=== PATIENT | female | born 1945 | race Caucasian/White ===

== ENCOUNTER 2017-11-28 09:28 | Day surgery (SDC) | payer OTHER, SELFPAY ==
[~2017-11-28 09:28] MED LIST: ASPI81CH PO; CLARITIN10 MG PO; GENPREOPSU; IBUP600; LEVSOD100 PO; LORA10; OXYC5; PRED1
== END 2017-11-28 12:35 | disposition home or self-care (01) ==
LOC: ORSCMMR 09:28 → ORD 10:30 → ORSCMMR 10:30
PROVIDERS: Internal Medicine Gastroenterology
PROC: 0DBK8ZX Excision of Ascending Colon, Via Natural or Artificial Opening Endoscopic, Diagnostic (ICD-10-PCS; principal; 2017-11-28 10:30)
PROC: 0DB68ZX Excision of Stomach, Via Natural or Artificial Opening Endoscopic, Diagnostic (ICD-10-PCS; principal; 2017-11-28 10:30)
PROC: 0DB98ZX Excision of Duodenum, Via Natural or Artificial Opening Endoscopic, Diagnostic (ICD-10-PCS; principal; 2017-11-28 10:30)
PROC: 0DBM8ZX Excision of Descending Colon, Via Natural or Artificial Opening Endoscopic, Diagnostic (ICD-10-PCS; principal; 2017-11-28 10:30)
DX: K29.80 Duodenitis without bleeding (principal); R63.4 Abnormal weight loss; K63.89 Other specified diseases of intestine; D12.2 Benign neoplasm of ascending colon; K44.9 Diaphragmatic hernia without obstruction or gangrene; E03.9 Hypothyroidism, unspecified; M06.9 Rheumatoid arthritis, unspecified; Z79.899 Other long term (current) drug therapy
CPT/HCPCS: 88305; 88342; J7030

== ENCOUNTER 2018-02-01 08:45 | Emergency (ER) | payer OTHER, SELFPAY | END 2018-02-01 09:45 | disposition left against medical advice (07) | LOC: ER 08:45 | DX: Z53.21 Procedure and treatment not carried out due to patient leaving prior to being seen by health care provider (principal) ==

== ENCOUNTER 2018-10-24 16:08 | Emergency (ER) | payer OTHER ==
[~2018-10-24] VITALS: Ht 180.3 cm; Wt 61.2 kg
== END 2018-10-24 19:05 | disposition home or self-care (01) ==
LOC: ER 16:08
DX: S43.402A Unspecified sprain of left shoulder joint, initial encounter (principal); W22.8XXA Striking against or struck by other objects, initial encounter; Z88.5 Allergy status to narcotic agent; Z88.8 Allergy status to other drugs, medicaments and biological substances; Z79.899 Other long term (current) drug therapy; Z79.891 Long term (current) use of opiate analgesic; Z79.82 Long term (current) use of aspirin; Z79.52 Long term (current) use of systemic steroids; E03.9 Hypothyroidism, unspecified; Z87.891 Personal history of nicotine dependence
CPT/HCPCS: 73030; 99283-25

== ENCOUNTER 2019-02-05 09:31 | Day surgery (SDC) | payer OTHER | END 2019-02-05 23:00 | disposition home or self-care (01) | LOC: US 09:31 | DX: K74.0 Hepatic fibrosis (principal); E03.9 Hypothyroidism, unspecified; J44.9 Chronic obstructive pulmonary disease, unspecified; Z87.891 Personal history of nicotine dependence; Z79.899 Other long term (current) drug therapy | CPT/HCPCS: 47000; 76942; 88307; 88313 ==

== ENCOUNTER → 2020-12-30 | Outpatient (CLI) | payer OTHER | LOC: LAB SHORT 13:27 → OLS 13:27 | DX: J47.9 Bronchiectasis, uncomplicated (principal) | CPT/HCPCS: 87015; 87116; 87206 ==

== ENCOUNTER → 2021-01-08 | Outpatient (CLI) | payer OTHER | END | disposition home or self-care (01) | LOC: LAB SHORT 12:55 → LAB 12:55 | DX: J47.9 Bronchiectasis, uncomplicated (principal) | CPT/HCPCS: 87015; 87116; 87206 ==

== ENCOUNTER 2023-11-04 11:46 | Inpatient (IN) | payer OTHER ==
[~2023-11-04] VITALS: Ht 177.8 cm; Wt 55.7 kg
[2023-11-04] VITALS (17 sets, daily range): BP systolic 107–131; BP diastolic 51–76
[~2023-11-04 11:46] MED LIST changes: +Acetaminophen 500 MG Tab PO SCH; +CeFAZolin Sodium 2,000 MG in NS 100 ML IV SCH; +Cranberry400 MG PO; +ERGO400 PO; +Echinacea80 MG PO; +HYDHCL25 PO; +Heparin Sodium 5000 Units/ML 1ML MDV IV ONE; +Indocyanine Green 25 MG Vial IV ONE; +Lactated Ringer's 1,000 ML IV SCH; +MAGNESIUM OXID500 MG PO; +MERIBIN5 MG PO; +MetroNIDAZOLE 500MG/NS 100 ml 100 ML IV SCH; +NEURONTIN300 MG PO; -OXYC5; +OXYC5 PO; +TIOT18 INH; +TURMERIC500 M2 PO; +VITAMIN B-122000 MC1 PO; +Vitamin B Comple1 EA PO; +Vitamin C100 M1 PO; +ZINC15 PO
[2023-11-04] MEDS ORDERED: propofoL 20 ML IV ONE (11:58)
[2023-11-04] MEDS ORDERED: FentaNYL Citrate 50 MCG/ML 2 ML Injection ONE ×3 (12:00→17:06)
[2023-11-04] MEDS ORDERED: Rocuronium Bromide 10 MG/ML 5ML Injection IV ONE ×4 (12:01→14:45)
[2023-11-04] MEDS ORDERED: Bupivacaine 0.5% Inj 50 ML Vial ONE (12:27)
[2023-11-04] MEDS ORDERED: Heparin Sodium,Porcine 5,000 UNIT/0.5 ML SDV SC ONE (12:30)
[2023-11-04] MEDS ORDERED: Midazolam HCl 1MG / ML 2ML Vial IV ONE (12:35)
[2023-11-04] MEDS ORDERED: Dexamethasone Sod Phos 10 MG/ML 1ML VIAL ONE (13:14)
[2023-11-04] MEDS ORDERED: Ondansetron HCl 2 MG / ML 2ML Vial ONE ×2 (13:14→16:36)
[2023-11-04] MEDS ORDERED: ePHEDrine Sulfate 50 MG/ML 1ML Injection ONE (13:15)
[2023-11-04] MEDS ORDERED: Phenylephrine HCl 100 MCG/ML-NS 10MLSYR (1MG/10ML) ONE (13:23)
[2023-11-04] MEDS ORDERED: Ondansetron HCl 2 MG / ML 2ML Vial IV PRN ×2 (14:10→16:15)
[2023-11-04] MEDS ORDERED: FentaNYL Citrate 50 MCG/ML 2 ML Injection IV PRN ×3 (14:10)
[2023-11-04] MEDS ORDERED: Sugammadex Sodium 200 MG/2ML SDV (100 MG/ML) ONE ×2 (15:38→16:06)
[2023-11-04] MEDS ORDERED: Gabapentin 300 MG Cap PO PRN (16:10)
[2023-11-04] MEDS ORDERED: HyDROXyzine HCl 25 MG Tab PO PRN (16:10)
[2023-11-04] MEDS ORDERED: OxyCODONE HCL 5 MG TAB PO PRN (16:10)
[2023-11-04] MEDS ORDERED: Ipratropium Bromide INH 0.02% 0.5 mg/2.5ML Vial INH SCH (16:15)
[2023-11-04] MEDS ORDERED: Lactated Ringer's 1,000 ML IV SCH (16:15)
[2023-11-04] MEDS ORDERED: Acetaminophen 325 MG TABLET PO PRN (16:15)
[2023-11-04] MEDS ORDERED: HYDROmorphone HCl/Pf 1MG SYR IV PRN (16:25)
[2023-11-04] MEDS ORDERED: Metoclopramide HCl 5MG / ML 2ML Vial ONE (17:02)
[2023-11-04] MEDS ORDERED: Tiotropium Bromide 2.5 MCG/ACT MIST INHAL (10 ACT/4 GM) INH SCH (17:55)
--- NOTE | 2023-11-04 18:00 | NUR ---
ARRIVAL TO SURGICAL UNIT VIA [facility] TO HOSPITAL BED. GROGGY BUT APPROP. DENIES N/V BUT MEDICATED IN PACU & ONLY WANTS SIPS OF WATER. ASSESSMENT CHARTED. FAMILY AT BEDSIDE.
[2023-11-05 02:04] VITALS: BP 131/75
[2023-11-05 04:08] LABS: BASOPHILS ABSOLUTE AUTO 0.03 K/mm3 (0.00-0.23); BASOPHILS PERCENT AUTO 0 % (0-2); EOSINOPHILS PERCENT AUTO 0 % (0-6); Hematocrit 32.2 % (33.0-51.0); Hemoglobin 10.5 g/dL (11.5-16.0); IMMATURE GRAN ABSOLUTE AUTO 0.05 K/mm3 (0.00-0.10); IMMATURE GRAN PERCENT AUTO 0 % (0-1); LYMPHOCYTES ABSOLUTE AUTO 0.85 K/mm3 (0.84-5.20); LYMPHOCYTES PERCENT AUTO 7 % (21-46); MONOCYTES ABSOLUTE AUTO 0.44 K/mm3 (0.16-1.47); MONOCYTES PERCENT AUTO 4 % (4-13); Mean Corpuscular HGB 28.5 pg (26.0-34.0); Mean Corpuscular HGB Conc 32.6 g/dL (31.5-36.5); Mean Corpuscular Volume 88 fL (80-100); Mean Platelet Volume 11.2 fL (9.1-12.4); NEUTROPHILS ABSOLUTE AUTO 11.31 K/mm3 (1.96-9.15); NEUTROPHILS PERCENT AUTO 89 % (41-73); Platelet Count 208 K/mm3 (150-400); RDW Coefficient Variation 14.6 % (11.7-14.2); RDW Standard Deviation 47.3 fL (35.1-46.3); Red Blood Cell Count 3.68 M/mm3 (3.80-5.20); White Blood Cell Count 12.68 K/mm3 (4.00-11.30)
[2023-11-05 04:25] LABS: Bun/Creatinine Ratio 13.6 (12.0-20.0); Calcium, Blood 8.8 mg/dL (8.5-10.1); Creatinine, Blood 0.81 mg/dL (0.40-1.00); Potassium, Blood 4.6 mmol/L (3.5-5.5)
--- NOTE | 2023-11-05 04:31 | NUR ---
SHIFT SUMMARY POD 1-R JORGE COLECTOMY. 5 LAP SITES W/SKIN ADHESIVE, SURGICAL SITES OPEN TO AIR W/O ANY DRAINAGE. PT REPORTS 8-13/10 PAIN, WORSE W/MOVEMENT. STATES PAIN IS PRESSURE. MEDICATED 2x W/5MG OXYCODONE & 1x W/0.5MG IV DILAUDID, PT STATES MIN PAIN RELIEF, IS ABLE TO REST COMFORTABLY W/EYES CLOSED. REPORTED NAUSEA 1x, MEDICATED W/ZOFRAN, NO EMESIS OR FURTHER NAUSEA REPORTED. TOLERATING CLEAR LIQUIDS. DENIES PASSING FLATUS, STATES SHE HAS BELCHED. HAS BEEN UP AMBULATING TO RESTROOM SBY ASSIST MULT TIMES. HAS VOIDED. CALL LIGHT IN REACH, WILL MONITOR.
[2023-11-05] MEDS ORDERED: Levothyroxine Sodium 0.1 MG Tab PO SCH (06:00)
[2023-11-05 07:37] VITALS: BP 114/57
[2023-11-05] MEDS ORDERED: Magnesium Oxide 400 MG Tab PO SCH (09:00)
--- NOTE | 2023-11-05 11:00 | NUR ---
"Spiritual Care | Pt. request Pt. is awake in bed and welcomes my visit. Pt. is pleasant. Pt. verbalizes that she did not remember making a spiritual care request, but welcomes the visit regardless. facilitate a life review and Pt. verbalizes her spiritual and life journey. 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 Pt. displays evidence of a hopeful and engaged attitude. With theraputic listening and a calming presence rapport is established. Prayed with Pt. Pt. verbalized graittude for the spiritual care visit and welcmoed this drophammer operator to return."
[2023-11-05 15:26] VITALS: BP 130/57
[2023-11-05] MEDS ORDERED: Enoxaparin 40 MG/0.4 ML SYR SC SCH (17:00)
--- NOTE | 2023-11-05 17:41 | NUR ---
SHIFT SUMMARY PT HAS DONE WELL TODAY DESPITE RATING PAIN HIGH. STARTED HAVING SMALL LQ BMs. DENIES NAUSEA & HAS SLOWLY INCREASED PO INTAKE. ADVANCED TO FULL LQ FOR DINNER. TOLERATING WELL w/ MINIMAL BLOAT. HAS BEEN UP IN ROOM SEVERAL TIMES BUT DECLINES HALLWAYS.
[2023-11-05 19:29] VITALS: BP 129/61
[2023-11-06 03:30] VITALS: BP 146/75
--- NOTE | 2023-11-06 04:25 | NUR ---
SHIFT SUMMARY POD 2 R HEMICOLECTOMY PT NOT VERY RESTFUL TONIGHT. PAIN MANAGED PER EMAR, AND USE OF K-PAD. PT TOLERATING FULL LIQUIDS. AMB IND TO THE BATHROOM. X5 LAP SITES C/D/I. VSS. NO OTHER CONCERNS AT THIS TIME, CALL LIGHT WITHIN REACH
[2023-11-06 07:23] VITALS: BP 140/60
[2023-11-06 07:41] LABS: BASOPHILS ABSOLUTE AUTO 0.03 K/mm3 (0.00-0.23); BASOPHILS PERCENT AUTO 0 % (0-2); EOSINOPHILS ABSOLUTE AUTO 0.02 K/mm3 (0.00-0.68); EOSINOPHILS PERCENT AUTO 0 % (0-6); Hematocrit 32.2 % (33.0-51.0); Hemoglobin 10.5 g/dL (11.5-16.0); IMMATURE GRAN ABSOLUTE AUTO 0.03 K/mm3 (0.00-0.10); IMMATURE GRAN PERCENT AUTO 0 % (0-1); LYMPHOCYTES ABSOLUTE AUTO 0.89 K/mm3 (0.84-5.20); LYMPHOCYTES PERCENT AUTO 9 % (21-46); MONOCYTES ABSOLUTE AUTO 0.45 K/mm3 (0.16-1.47); MONOCYTES PERCENT AUTO 5 % (4-13); Mean Corpuscular HGB 29.1 pg (26.0-34.0); Mean Corpuscular HGB Conc 32.6 g/dL (31.5-36.5); Mean Corpuscular Volume 89 fL (80-100); Mean Platelet Volume 11.1 fL (9.1-12.4); NEUTROPHILS ABSOLUTE AUTO 8.22 K/mm3 (1.96-9.15); NEUTROPHILS PERCENT AUTO 85 % (41-73); Platelet Count 191 K/mm3 (150-400); RDW Coefficient Variation 14.7 % (11.7-14.2); RDW Standard Deviation 47.8 fL (35.1-46.3); Red Blood Cell Count 3.61 M/mm3 (3.80-5.20); White Blood Cell Count 9.64 K/mm3 (4.00-11.30)
[2023-11-06] MEDS ORDERED: OxyCODONE HCL 5 MG TAB PO PRN (14:15)
[2023-11-06] MEDS ORDERED: Baclofen 10 MG Tab PO PRN (14:30)
[2023-11-06 14:36] VITALS: BP 97/65
[2023-11-06 19:12] VITALS: BP 120/95
--- NOTE | 2023-11-07 04:24 | NUR ---
SHIFT SUMMARY POD 3 R HEMICOLECOTMY PT RESTED T/O SHIFT. PAIN MANAGED PER EMAR. PT TOLERATING PO INTAKE, VOIDING WELL. PASSING SMALL AMOUNTS OF GAS. AMB IND IN THE ROOM. X5 LAP SITES C/D/I. VSS. NO OTHER CONCERNS AT THIS TIME, CALL LIGHT WITHIN REACH
[2023-11-07 07:01] VITALS: BP 121/58
[2023-11-07 14:29] VITALS: BP 111/58
--- NOTE | 2023-11-07 18:40 | NUR ---
PT HAS BEEN STABLE POST OP DAY #3 FOR A HEMICOLECTOMY. PT TOLERATING DIET BUT STATES SHE HAS MILD NAUSEA. MEDICATED PER EMAR X1, EFFECTIVE. PT PASSING FLATUS. SMALL BM THIS AM. VOIDING WELL. PT REPORTS HIGH PAIN, HOWEVER REPORTS THAT IT IS CHRONIC AND HAS REQUESTED PAIN MEDICATION ONLY X1 THIS SHIFT. IV S.L. ABD INCISIONS CLEAN AND OPEN TO AIR X5. PT INDEP TO AMBULATE IN HALLWAYS AND ROOM. PROBABLE DC HOME TOMORROW.
[2023-11-07 19:47] VITALS: BP 117/54
--- NOTE | 2023-11-08 04:17 | NUR ---
SHIFT SUMMARY POD 4 R HEMICOLECTOMY PT ABLE TO REST DURING THE SHIFT. PAIN MANAGED PER EMAR. PT IND IN THE ROOM, VOIDING WELL. HAVING SM LIQUID BM'S. X5 LAP SITES ARE C/D/I. TOLERATING PO INTAKE. VSS. NO OTHER CONCERNS AT THIS TIME, CALL LIGHT WIHTIN REACH
[2023-11-08 05:11] VITALS: BP 115/59
[2023-11-08 07:12] VITALS: BP 117/59
[2023-11-08 14:18] VITALS: BP 113/57
--- NOTE | 2023-11-08 16:25 | NUR ---
SHIFT SUMMARY POD 3 R JORGE COLECTOMY PT HAS REMAINED IND IN ROOM, AMBULATING WELL. VOIDING WELL. REPORTS SIGNIFICANT PAIN T/O SHIFT BUT MANAGING PER EMAR. REPORTS MINIMAL APPETITE RELATED TO FOOD QUALITY, BUT DENIES ANY NAUSEA. PT REPORTS ANXIETY ABOUT POSSIBILITY OF DISCHARGING HOME. SMALL BM'S REPORTED. USING CALL LIGHT APPROPRIATLY.
[2023-11-08 19:21] VITALS: BP 100/54
--- NOTE | 2023-11-09 04:02 | NUR ---
SHIFT SUMMARY NO ACUTE CHANGES TO REPORT OVERNIGHT. PT HAS RESTED T/O MOST OF THE SHIFT, MEDICATED FOR PAIN PRN PER ORDERS. SUGICAL SITE WNL. PT TOLERATING PO INTAKE WITH NO N/V. PLAN IS FOR DC TODAY. BED IN LOWEST POSITION, CALL LIGHT WITHIN REACH.
[2023-11-09 04:06] VITALS: BP 117/52
[2023-11-09 07:25] VITALS: BP 113/55
[2023-11-09] MEDS ORDERED: Metoclopramide HCl 5MG / ML 2ML Vial IV PRN (12:10)
[2023-11-09 14:58] VITALS: BP 100/52
--- NOTE | 2023-11-09 17:44 | NUR ---
SHIFT SUMMARY PT IS POD#5 FROM [facility] [address] WITH [address] IRWIN. PT CONTINUES TO RATE PAIN AT 10-13/10, PAIN DECREASES TO 8-9/10 AFTER PAIN MEDICATION. PT STATES SHE IS ABLE TO TOLERATE PAIN AT THESE LEVELS. PT IS ABLE TO DISTRACT FROM THE PAIN VISITING WITH FRIENDS, FAMILY AND STAFF. PT HAS BEEN AMBULATING IN HER ROOM INDEPENDENTLY AND PERFORMING MOST OF HER ADL'S. PT HAS A MINIMAL APPETITE. SHE WAS NAUSEATED THIS MORNING, ZOFRAN GIVEN AND HAD LITTLE TO NO EFFECT, REGLAN GIVEN AND NAUSEA IMPROVED. PT ALSO REPORTED SHE PASSED SOME FLATUS THIS EVENING. PT USES CALL LIGHT APPROPRIATELY.
[2023-11-09 19:13] VITALS: BP 108/54
[2023-11-10 02:09] VITALS: BP 108/64
--- NOTE | 2023-11-10 03:10 | NUR ---
SHIFT SUMMARY PT HAS RESTED T/O THE NIGHT, MEDICATED FOR PAIN PRN PER EMAR. PT REPORTS THAT SHE IS PASSING GAS. TOLERATING PO INTAKE. NO REPORTS OF NAUSEA. PT HAS BEEN INDEPENDENT IN THE ROOM AND VOIDING. POST OP VITALS STABLE. BED IN LOWEST POSITION, CALL LIGHT WITHIN REACH.
[2023-11-10 05:20] LABS: BASOPHILS ABSOLUTE AUTO 0.03 K/mm3 (0.00-0.23); BASOPHILS PERCENT AUTO 1 % (0-2); EOSINOPHILS ABSOLUTE AUTO 0.22 K/mm3 (0.00-0.68); EOSINOPHILS PERCENT AUTO 6 % (0-6); Hematocrit 34.5 % (33.0-51.0); Hemoglobin 11.4 g/dL (11.5-16.0); IMMATURE GRAN ABSOLUTE AUTO 0.01 K/mm3 (0.00-0.10); IMMATURE GRAN PERCENT AUTO 0 % (0-1); LYMPHOCYTES ABSOLUTE AUTO 1.04 K/mm3 (0.84-5.20); LYMPHOCYTES PERCENT AUTO 27 % (21-46); MONOCYTES PERCENT AUTO 10 % (4-13); Mean Corpuscular HGB 28.9 pg (26.0-34.0); Mean Corpuscular Volume 87 fL (80-100); Mean Platelet Volume 10.4 fL (9.1-12.4); NEUTROPHILS ABSOLUTE AUTO 2.23 K/mm3 (1.96-9.15); NEUTROPHILS PERCENT AUTO 57 % (41-73); Platelet Count 309 K/mm3 (150-400); RDW Coefficient Variation 13.8 % (11.7-14.2); RDW Standard Deviation 44.4 fL (35.1-46.3); Red Blood Cell Count 3.95 M/mm3 (3.80-5.20); White Blood Cell Count 3.93 K/mm3 (4.00-11.30)
[2023-11-10 05:50] LABS: Albumin, Blood 2.9 g/dL (3.4-5.0); Albumin/Globulin Ratio 0.9 (0.8-1.8); Bilirubin, Total 0.4 mg/dL (0.1-1.0); Creatinine, Blood 0.8 mg/dL (0.40-1.00); Globulin, Blood 3.4 g/dL (2.2-4.0); Potassium, Blood 3.7 mmol/L (3.5-5.5); Total Protein, Blood 6.3 g/dL (6.4-8.2)
[2023-11-10 07:10] VITALS: BP 106/54
[2023-11-10] MEDS ORDERED: METO10 PO (09:20)
[2023-11-10 11:49] VITALS: BP 116/64
--- NOTE | 2023-11-10 12:06 | NUR ---
DISCHARGE PT PROVIDED WITH WRITTEN AND VERBAL DISCHARGE INSTRUCTIONS, PT REPORTED UNDERSTANDING. VSS AT TIME OF DISCHARGE. NAUSEA AND PAIN MANAGED. BOWEL SOUNDS HYPERACTIVE, PER PT SHE LAST PASS FLATUS YESTERDAY EVENING DR. GUILLAUME AWARE. PT TOLERATING SMALL AMOUNTS OF MEALS. PRESCRIPTIONS PROVIDED AND A LIST OF OPEN PHARMACIES PROVIDED WITH SATURDAY HOURS. PT ASSISTED OUT IN W/C AT APPROXIMATELY 1154.
== END 2023-11-10 11:55 | disposition home or self-care (01) | DRG 331 ==
LOC: ORD 11:46 → ORSCMMR 11:46 → SDS 11:46 → ORD 13:00 → SURS 16:59 → SDS 17:00 → SURS 17:00
PROVIDERS: Surgery; ADMIT Surgery
PROC: 8E0W4CZ Robotic Assisted Procedure of Trunk Region, Percutaneous Endoscopic Approach (ICD-10-PCS; 2023-11-04)
PROC: 0DTF4ZZ Resection of Right Large Intestine, Percutaneous Endoscopic Approach (ICD-10-PCS; principal; 2023-11-04 13:00)
DX: C18.2 Malignant neoplasm of ascending colon (principal); J44.9 Chronic obstructive pulmonary disease, unspecified; B19.20 Unspecified viral hepatitis C without hepatic coma; E03.9 Hypothyroidism, unspecified; M81.0 Age-related osteoporosis without current pathological fracture; M06.9 Rheumatoid arthritis, unspecified; Z90.49 Acquired absence of other specified parts of digestive tract; Z98.890 Other specified postprocedural states; Z90.89 Acquired absence of other organs; Z90.710 Acquired absence of both cervix and uterus; Z98.51 Tubal ligation status; Z79.899 Other long term (current) drug therapy; Z79.51 Long term (current) use of inhaled steroids; Z79.890 Hormone replacement therapy; Z88.5 Allergy status to narcotic agent; Z88.8 Allergy status to other drugs, medicaments and biological substances; Z87.891 Personal history of nicotine dependence
CPT/HCPCS: 36415; 80048; 80053; 82378; 83735; 85025; 88309; 93005; 93010; 94640; 94664; 94760; 94762; A9270; J0690; J1100; J1170; J1644; J1650; J2250; J2371; J2405; J2704; J2765; J3010; J7120

== ENCOUNTER → 2025-04-29 | Outpatient (CLI) | payer OTHER ==
[~2025-04-29] MED LIST changes: -Acetaminophen 500 MG Tab PO SCH; -CeFAZolin Sodium 2,000 MG in NS 100 ML IV SCH; -Heparin Sodium 5000 Units/ML 1ML MDV IV ONE; -Indocyanine Green 25 MG Vial IV ONE; -Lactated Ringer's 1,000 ML IV SCH; +METO10 PO; -MetroNIDAZOLE 500MG/NS 100 ml 100 ML IV SCH
== END ==
LOC: LAB 10:31 → LAB SHORT 10:31
DX: J47.9 Bronchiectasis, uncomplicated (principal)
CPT/HCPCS: 87070; 87205